=== PATIENT | female | born 1985 | race Caucasian/White ===

== ENCOUNTER → 2017-06-22 15:56 | Outpatient (CLI) | payer BC, SELFPAY ==
--- NOTE | 2017-06-22 16:01 | EKG12_ITS ---
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 Rate : 062 BPM Atrial Rate : 062 BPM P-R Int : 136 ms QRS Dur : 084 ms QT Int : 408 ms P-R-T Axes : 061 081 052 degrees QTc Int : 414 ms Normal sinus rhythm Normal ECG Confirmed by PRAVEENA GOMEZ, BIANCA ([id number]), technical writer and editor ESTER ENGLISH ([id number] on 06/26/2017 1:57:18 PM Referred By: OUT DOCTOR Confirmed By:BIANCA GRISSOM MD
== END ==
PROVIDERS: Family Provider Family Medicine; PCP Family Medicine
DX: G61.0 Guillain-Barre syndrome (principal)
CPT/HCPCS: 93005

== ENCOUNTER → 2017-09-17 17:02 | Outpatient (CLI) | payer BC, SELFPAY ==
[2017-09-17 17:37] LABS: Hematocrit 39.8 % (37-47); Hemoglobin 13.4 g/dl (12.0-15.0); Mean Corp Hgb Conc 33.7 g/gl (32-36); Mean Corpuscular Hgb 29.6 pg (27.0-32.0); Mean Corpuscular Volume 88.1 fL (81-99); Platelet Count 176 K/mm3 (150-450); RBC Distribution Width CV 12.7 % (11.6-14.6); RBC Distribution Width SD 40.9 fl (35.1-43.9); Red Blood Count 4.52 M/mm3 (4.2-5.4)
[2017-09-17 17:38] LABS: Scan Indicated on CBC? Y/N NO
[2017-09-17 17:51] LABS: hCG Titer Quant., Serum < 1 mIU/mL (<9 non-preg)
[2017-09-17 18:09] LABS: Thyroid Stim Hormone (TSH) 2.04 uIU/mL (0.358-3.74)
== END ==
PROVIDERS: Visit Provider Obstetrics & Gynecology
DX: N92.5 Other specified irregular menstruation (principal)
CPT/HCPCS: 36415; 84443; 84702; 85027

== ENCOUNTER → 2017-11-24 09:43 | Outpatient (CLI) | payer BC, SELFPAY ==
--- NOTE | 2017-11-24 09:48 | US_ITS ---
STUDY: ABDOMINAL ULTRASOUND REASON FOR EXAM: Female, 32 years old. Nausea, vomiting, and abdominal pain. TECHNIQUE: Transabdominal ultrasound was performed with real-time and static heart scale imaging. TECHNICAL QUALITY: Adequate. COMPARISON: None. FINDINGS: Liver: The liver measures 12.7 cm. There is normal echogenicity of the liver. The bile ducts are within normal limits. There is hepatic color flow. The direction of portal flow is hepatopetal. There is no demonstrated mass lesion. Portal vein wasn't measured.: Gallbladder: Normal distended gallbladder. The gallbladder wall measures 1.9 mm. There is a positive sonographic Nielsen's sign, according to the chemistry technologist notes. There is no pericholecystic fluid. There is a solitary, mobile, 6 mm gallstone. Common Bile Duct (C.B.D.): The common bile duct measures 6.4 mm. Pancreas: Normal size of the visualized pancreas. The tail of the pancreas is largely obscured. There is normal echogenicity of the pancreas. There is no demonstrated pancreatic mass or cyst. Spleen: Normal size of the spleen. The spleen measures 11.1 cm. Right Kidney: Normal size of the right kidney. The right kidney measures 10.3 x 4.2 x 4.7 cm. Normal renal cortex. The right cortex measures 1.6 cm. There is no demonstrated renal mass or cyst. There is no right hydronephrosis. Left Kidney: Normal size of the left kidney. The left kidney measures 10.6 x 4.5 x 4.9 cm. Normal renal cortex. The left cortex measures 1.7 cm. There is no demonstrated renal mass or cyst. There is no left hydronephrosis. Aorta: Normal. I.V.C.: The IVC is patent. There is no ascites. US/Abdomen Complete IMPRESSION: 6 mm gallstone. The gallbladder otherwise appears normal, however, there is a reportedly positive sonographic Nielsen's sign. Mildly prominent common bile duct measuring 6.4 mm. Electronically Signed: Wiliam Galindo MD at 7:15 EDT , Service support ,
== END ==
LOC: US 09:44
PROVIDERS: Family Provider Family Medicine; PCP Family Medicine; Referring Provider Registered Nurse; Visit Provider Registered Nurse
DX: R10.84 Generalized abdominal pain (principal); R11.2 Nausea with vomiting, unspecified
CPT/HCPCS: 76700

== ENCOUNTER → 2018-06-25 15:29 | Outpatient (CLI) | payer BC, SELFPAY ==
[2018-06-25 17:31] LABS: Erythrocyte Sedimentation Rate < 1 mm/hr (0-20)
[2018-06-25 17:44] LABS: Vitamin B12 505 pg/mL (211-911)
[2018-06-25 18:03] LABS: ALB/GLOB Ratio 1.4 RATIO (0.9-2.4); AST(SGOT) 13 U/L (15-37); Alanine Aminotransfer ALT/SGPT 19 U/L (13-56); Albumin, Serum 3.8 g/dL (3.2-5.0); Alkaline Phosphatase 41 U/L (45-117); Anion Gap 7 (5-15); BUN 7 mg/dL (7-18); BUN/Creat Ratio 8.6 RATIO (10-20); CRP < 2.90 mg/L (0.0-3.0); Calcium,Total 8.5 mg/dL (8.5-10.1); Chloride 107 mmol/L (98-107); Creatinine, Serum 0.81 mg/dL (0.55-1.02); EST Glomerular Filtration Rate 87 mL/min (>60); Est Glom Filt Rate - Afr Amer 105 mL/min (>60); Globulin 2.8 g/dL (2.2-4.2); Glucose 89 mg/dL (74-106); Potassium 3.5 mmol/L (3.5-5.1); Protein, Total 6.6 g/dL (6.4-8.2); Sodium Level 143 mmol/L (136-145); Thyroid Stim Hormone (TSH) 1.81 uIU/mL (0.358-3.74)
[2018-06-27 16:07] LABS: PROEL- A/G Ratio 1.6 (0.7-1.7); PROEL- Albumin 3.9 g/dL (2.9-4.4); PROEL- Alpha-1 Globulin 0.2 g/dL (0.0-0.4); PROEL- Alpha-2 Globulin 0.5 g/dL (0.4-1.0); PROEL- Beta Globulin 0.7 g/dL (0.7-1.3); PROEL- Globulin, Total 2.5 g/dL (2.2-3.9); PROEL- TOTAL PROTEIN 6.4 g/dL (6.0-8.5)
[2018-06-28 10:00] LABS: ANTINUCLEAR ANTIBODIES DIRECT Negative (Negative)
[2018-06-28 16:07] LABS: PROELU- Albumin, Urine 24.6 % (.); PROELU- Alpha-1-Globulin,Ur 2.6 % (.); PROELU- Alpha-2-Globulin,Ur 18.8 % (.); PROELU- Beta Globulin, Ur 36.4 % (.); PROELU- Gamma Globulin, Ur 17.7 % (.); Total Protein, Ur 15.4 mg/dL (Not Estab.)
== END ==
PROVIDERS: Family Provider Family Medicine; PCP Family Medicine; Referring Provider Psychiatry & Neurology Neurology; Visit Provider Psychiatry & Neurology Neurology
DX: G62.9 Polyneuropathy, unspecified (principal)
CPT/HCPCS: 36415; 80053; 82607; 84165; 84166; 84443; 85652; 86038; 86140

== ENCOUNTER 2018-07-02 13:09 | Emergency (ER) | payer BC, SELFPAY ==
[2018-07-02 13:09] VITALS: BP 102/70; PULSE 63; RESP 16; TEMP 36.5; O2SAT 100; BMI 21.4
--- NOTE | 2018-07-02 13:35 | CT_ITS ---
STUDY: CT ABDOMEN AND PELVIS WITHOUT CONTRAST REASON FOR EXAM: Female, 33 years old. Lower quadrant pain, nausea vomiting diarrhea RADIATION DOSAGE (If Supplied By Facility): CTDIvol = ( 6.06 ) mGy, DLP = ( 272.70 ) mGycm TECHNIQUE: Transaxial images were obtained from the dome of the diaphragm to the symphysis pubis without oral contrast, and without intravenous contrast. Sagittal and coronal images were reconstructed. Individualized dose optimization techniques were used for this CT. COMPARISON: None. FINDINGS: The visualized lung bases are unremarkable. The visualized portions of the heart are within normal limits. Normal liver. There are surgical clips in the gallbladder fossa consistent with a prior cholecystectomy. Normal spleen. Normal pancreas. Normal bilateral adrenal glands. Normal right kidney. Normal left kidney. There is minimal amount of radiopaque material within the stomach. Normal small intestine. There is a fluid appearance of the rectum with a relatively decompressed appearance of most of the colon with the exception of the cecum. There is a gassy appearance of the appendix that measures up to normal 5 mm without evidence of surrounding inflammation. Normal abdominal aorta. Normal inferior vena cava. There few nonspecific retroperitoneal lymph nodes. There is a mildly thick-walled appearance of the bladder. Normal visualized uterus. A small amount of free fluid in the pelvis. Normal abdominal wall. Normal osseous structures. CT/Abdomen/Pelvis without Cont IMPRESSION: Nonspecific bowel gas pattern. Findings suggest probable gastroenteritis. There is no visualized evidence of diverticula or diverticulitis. Trace fluid in the pelvis which is likely physiologic Status post cholecystectomy. Electronically Signed: Monalisa Díaz MD at 15:58 EDT Tel , Service support ,
[2018-07-02] MEDS: proCHLORPERazine 10 MG/2 ML Vial IV (14:00)
[2018-07-02] MEDS: DiphenhydrAMINE 50 MG/ML Syringe IV (14:00)
[2018-07-02] MEDS: 0.9% Normal Saline 1,000 ML 1000 ML IV (14:00)
[2018-07-02] MEDS: Ketorolac 30 MG/ML Syringe IV (14:00)
[2018-07-02 14:10] VITALS: RESP 18
[2018-07-02 15:09] LABS: Absolute Lymphocyte Count 2.34 X10^3/ul (0.83-4.51); Absolute Neutrophil Count 2.5 X10^3/uL (2.0-7.7); Basophil# 0.03 X10^3/uL; Basophil% 0.5 % (0-1); Eosinophil# 0.22 X10^3/uL; Eosinophils% 3.8 % (0-5); Hematocrit 39.7 % (37-47); Hemoglobin 13.2 g/dl (12.0-15.0); Lymphocyte # 2.34 X10^3/ul (4.0); Lymphocyte % 40.9 % (19-41); Mean Corp Hgb Conc 33.2 g/gl (32-36); Mean Corpuscular Hgb 29.1 pg (27.0-32.0); Mean Corpuscular Volume 87.4 fL (81-99); Mean Platelet Vol. 10.7 fl (6.2-12.0); Monocyte# 0.64 X10^3/uL; Monocyte% 11.2 % (0-10); Neutrophil # 2.48 X10^3/uL (2.7-7.7); Neutrophil % 43.4 % (47-70); POSITIVE COUNT NO; POSITIVE DIFFERENTIAL NO; POSITIVE MORPHOLOGY NO; Platelet Count 177 K/mm3 (150-450); RBC Distribution Width CV 12.7 % (11.6-14.6); Red Blood Count 4.54 M/mm3 (4.2-5.4); White Blood Count 5.7 K/mm3 (4.4-11.0)
[2018-07-02 15:21] LABS: Internal QC Validated? YES +Cl - CLEAR BKGD; Pregnancy, Serum, hCG Quali. NEGATIVE Negative
[2018-07-02 15:25] LABS: ALB/GLOB Ratio 1.2 RATIO (0.9-2.4); AST(SGOT) 15 U/L (15-37); Alanine Aminotransfer ALT/SGPT 16 U/L (13-56); Albumin, Serum 3.7 g/dL (3.2-5.0); Alkaline Phosphatase 44 U/L (45-117); Anion Gap 4 (5-15); BUN 8 mg/dL (7-18); BUN/Creat Ratio 11.3 RATIO (10-20); Calcium,Total 8.4 mg/dL (8.5-10.1); Chloride 109 mmol/L (98-107); Creatinine, Serum 0.71 mg/dL (0.55-1.02); EST Glomerular Filtration Rate 103 mL/min (>60); Est Glom Filt Rate - Afr Amer 124 mL/min (>60); Glucose 80 mg/dL (74-106); Potassium 3.3 mmol/L (3.5-5.1); Protein, Total 6.7 g/dL (6.4-8.2); Sodium Level 141 mmol/L (136-145)
--- NOTE | 2018-07-02 16:14 | ED.DCSUM_ITS ---
- ER Visit Summary Date of Service: 07/02/18 Chief Complaint: Vomiting and diarrhea History of Present Illness: The patient is a [address] Garza. She reports that she has vomiting and diarrhea that began 2 days ago. States she vomited 3-4 times. No blood or emesis. She had 2 episodes of diarrhea this began today. No blood in her stools or black tarry stools. She reports she has cramping diffuse abdominal pain is 10 to 10 hours and 6 out of 10 currently. Patient denies sick contacts. Has not been camping out of the country. No possible bad food exposure. Does not drink well water. No recent antibiotic use. Patient denies any dysuria or frequency. Her last menstrual. Was 2 weeks ago. No vaginal bleeding or discharge. Physical Examination: Vitals: Stable. Afebrile. General: Well-nourished and well-developed. Head: Normocephalic atraumatic. Neck: Supple, no lymphadenopathy. No JVD. Nontender. Cardiovascular: Regular rate and rhythm. No murmurs. Respiratory: No respiratory distress. Clear to auscultation bilaterally. Abdominal: Soft, mild diffuse upper abdominal tenderness and moderate tenderness palpation in the left lower quadrant, nondistended, normal bowel sounds. No guarding, rebound, or peritoneal signs. Back: Nontender. Extremities: Nontender, no edema. Skin: Normal color, no rash. Neurologic: Alert and oriented ?3. Cranial nerves II through XII are intact. Normal strength and sensation. Psych: Normal affect. Test Results: CBC is remarkable for segmented neutrophils of 43 monocytes of 11. Chem-7 shows a potassium 3.3, chloride 109, calcium 8.4. LFTs show an alk phos of 44. test is negative. Clinical Impression(s) from Imaging Studies Abdomen/Pelvis CT 07/02/18 13:35 IMPRESSION: Nonspecific bowel gas pattern. Findings suggest probable gastroenteritis. There is no visualized evidence of diverticula or diverticulitis. Trace fluid in the pelvis which is likely physiologic Status post cholecystectomy. Electronically Signed: Monalisa Díaz MD at 15:58 EDT Tel , Service support , Emergency Department Course and Treatment: Patient was given Toradol, Compazine, and Benadryl IV. She is resting comfortably. She is had no vomiting or diarrhea while here. Treatment Plan: Patient be discharged with Zofran. Instructed to follow-up her primary care physician 1 to 2 days if not improving. Return to the emergency department for any worsening symptoms. Disposition: To home in improved and stable condition. Impression: 1. Vomiting/diarrhea. This note was generated with [employer] dictation software. It may contain incorrect words, spelling, and punctuation that were not noted in review of the chart prior to signing ED Disposition - Plan for ED Patient: Disposition: Home or Assisted Living Instructions: ED Vomiting Diarrhea Nonspecific Ad Prescriptions: Ondansetron [Zofran Odt] 4 mg PO Q8H PRN PRN #10 tablet PRN Reason: Nausea Referrals: Aditya Garza MD [Primary Care Provider] - 1-2 Days if not improving
[2018-07-02 17:08] VITALS: BP 111/75; PULSE 71; RESP 16; O2SAT 99
== END 2018-07-02 17:09 | disposition home or self-care (01) ==
LOC: ED 13:46
PROVIDERS: Emergency Provider Emergency Medicine; Family Provider Family Medicine; PCP Family Medicine
DX: R19.7 Diarrhea, unspecified (principal); R11.2 Nausea with vomiting, unspecified; R10.9 Unspecified abdominal pain; R50.9 Fever, unspecified; Z90.49 Acquired absence of other specified parts of digestive tract; F17.210 Nicotine dependence, cigarettes, uncomplicated
CPT/HCPCS: 74176; 80053; 84703; 85025; 96361; 96374; 96375; 99283; J7030; A4216

== ENCOUNTER → 2018-07-29 14:34 | Outpatient (CLI) | payer BC, SELFPAY ==
[2018-07-02 13:09] VITALS: BMI 21.4
--- NOTE | 2018-07-29 14:38 | RAD_ITS ---
STUDY: X-RAY - LUMBAR SPINE REASON FOR EXAM: Female, 33 years old. Guillain [place] syndrome TECHNIQUE: 4 view(s) of the lumbar spine were obtained. COMPARISON: CT scan abdomen and pelvis 07/02/2018. FINDINGS: Normal lumbar lordosis. There is no substantial scoliosis. There is a normal alignment of the vertebrae. Normal vertebral bodies and endplates. Normal disc space heights. The soft tissue structures are unremarkable. RAD/L/S Spine Min 4 Views IMPRESSION: Normal x-ray examination of the lumbar spine. Electronically Signed: Wiliam Galindo MD at 7:02 EDT , Service support ,
== END ==
PROVIDERS: Family Provider Family Medicine; PCP Family Medicine
DX: G61.0 Guillain-Barre syndrome (principal)
CPT/HCPCS: 72110

== ENCOUNTER → 2018-10-02 07:57 | Outpatient (CLI) | payer OTHER, BC, SELFPAY ==
--- NOTE | 2018-10-02 11:36 | NEURO_ITS ---
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 Since that time she has experienced nonprogressive pain in her lower extremities. She has no back pain she is healthy otherwise. She has recovered otherwise functionally from the Guillain- Otto?. She does not drink alcohol and she does not have diabetes. She currently sees pain management, Dr. Chowdhury, who ordered this test. On examination she has high archs bilaterally. Bilateral lower extremity nerve conduction studies performed demonstrating slowed conduction velocities diffusely in the bilateral common peroneal motor and tibial motor nerves. The sural sensory responses are also demonstrating mild slowing of conduction velocity and decreased in amplitude bilaterally somewhat asymmetrically. F-wave latencies are dispersed, H reflex responses are low normal. Right lower extremity needle electromyography is performed. Muscles evaluated included the extensor digitorum brevis, abductor hallucis, medial gastrocnemius, anterior tibialis, vastus medialis and vastus lateralis muscles. All muscles demonstrated normal insertional activity with absence of pathologic spontaneous activity. Motor unit potential recruitment pattern and amplitude is normal in all muscles tested. Impression: This is an abnormal electrophysiologic study consistent with chronic neuropathy, moderate to severe with slowing of conduction velocities. This is consistent by history with the patient's history of Guillain-Otto? likely based on examination and high arches with a superimposed chronic likely idiopathic peripheral neuropathy. Dictated but not proofread
== END ==
LOC: PSN 07:58
PROVIDERS: Family Provider Family Medicine; PCP Family Medicine
DX: G61.0 Guillain-Barre syndrome (principal)
CPT/HCPCS: 95910

== ENCOUNTER 2019-02-20 00:21 | Emergency (ER) | payer OTHER, SELFPAY ==
[2019-02-20 00:22] VITALS: BP 102/78; PULSE 109; RESP 20; TEMP 37.3; O2SAT 97; BMI 25.4
--- NOTE | 2019-02-20 00:33 | RAD_ITS ---
STUDY: X-RAY CHEST REASON FOR EXAM: Female, 34 years old. COUGH X 1 DAY TECHNIQUE: PA and lateral COMPARISON: None. FINDINGS: The lungs are clear and expanded. There is no demonstrated pleural abnormality. Normal size heart. Normal mediastinum and shaun. Normal visualized pulmonary arteries. Normal visualized aortic arch and descending thoracic aorta. Normal visualized thoracic spine. Normal visualized ribs, clavicles, and shoulders. There is no demonstrated abnormality of the visualized soft tissue structures of the upper abdomen. RAD/Chest PA and Lateral IMPRESSION: Negative x-ray examination of the chest. Electronically Signed: Bharat Rizvi, at 1:02 EST Tel , Service support ,
--- NOTE | 2019-02-20 00:33 | ED.VIS.GEN ---
History of Present Illness Chief Complaint: Cough Narrative: Patient is a 34-year-old female who has been ill for 1 day. She complains of fever with a maximum temperature at home of 104. She complains of congestion, rhinorrhea, sore throat, cough productive of green sputum, chest congestion, myalgias. Multiple sick contacts with similar symptoms. She has a remote history of Guillian-Otto? syndrome. She otherwise has no medical history. No history of any pulmonary disease. No daily medications. No vomiting. She has had some mild diarrhea. Past Medical History - Allergies and Home Meds Allergies/Adverse Reactions: Allergies No Known Allergies Allergy (Verified 02/20/19 00:22) Primary Care Physician: Aditya Garza MD [Primary Care Provider] - Past Medical History: None Smoking Status: Never smoker Review of Systems All systems negative except as indicated General: Reports: Fever, Malaise Eyes: Denies: Visual changes - bilaterally ENT: Denies: Bilateral ear pain Cardiovascular: Denies: Chest pain Respiratory: Reports: Cough, Sputum. Denies: Dyspnea Gastrointestinal: Reports: Diarrhea. Denies: Nausea, Vomiting Musculoskeletal: Reports: Myalgias, Arthralgias Skin: Denies: Rash Hematologic: Denies: Easy bruising Allergy: Denies: Uticaria Physical Exam Vital Signs/Narrative: Vital Signs Temp Pulse Resp BP Pulse Ox 02/20/19 00:22 99.2 F H 109 H 20 H 102/78 97 Inital Vital Signs reviewed: Yes General: Well nourished, No Acute Distress Head: Normocephalic Eyes: EOMI ENT: Moist mucous membranes Neck: Supple Cardiovascular: - - Heart regular, mild tachycardia Respiratory: No distress, CTA bilaterally. Negative for: Rales, Rhonchi, Wheezing Abdomen: Soft, Nontender Extremities: Nontender Skin: Normal color Neurological: Alert Psychological: Normal affect Diagnostic/Tx/Re-eval Impressions Chest X-Ray 02/20/19 00:33 IMPRESSION: Negative x-ray examination of the chest. Electronically Signed: Bharat Rizvi, at 1:02 EST Tel , Service support , 02/20/19 00:33 CXR [Chest PA and Lateral] [RAD] Stat - Medical Decision Making Chest x-ray shows no acute process. Patient's presentation is most suggestive of a viral syndrome, bronchitis, possibly influenza. Given her lack of comorbidities I do not feel Tamiflu would be indicated. She was advised on supportive care. She understands to return for new or worsening symptoms. She was discharged. ED Disposition - Plan for ED Patient: Disposition: Home or Assisted Living Instructions: VIRAL SYNDROME (Adult) Referrals: Aditya Garza MD [Primary Care Provider] -
[2019-02-20 01:47] VITALS: BP 101/64; PULSE 84; RESP 18; O2SAT 97
== END 2019-02-20 01:48 | disposition home or self-care (01) ==
PROVIDERS: Emergency Provider Emergency Medicine; Family Provider Family Medicine; PCP Family Medicine
DX: B34.9 Viral infection, unspecified (principal); R19.7 Diarrhea, unspecified; J34.89 Other specified disorders of nose and nasal sinuses; J02.9 Acute pharyngitis, unspecified; R05 Cough; M79.10 Myalgia, unspecified site
CPT/HCPCS: 71046; 99282

== ENCOUNTER → 2019-06-16 17:01 | Outpatient (CLI) | payer OTHER, SELFPAY ==
[2019-06-16 21:19] LABS: Chlamydia Trachomatis by PCR Negative (Negative); Neisserai gonorrhoeae by PCR Negative (Negative); Probe Check PASS; Sample Adequacy Control PASS; Specimen Processing Control PASS
[2019-06-18 16:12] LABS: HPV Reflexed? NOT INDICATED
== END ==
PROVIDERS: PCP Family Medicine; Referring Provider Obstetrics & Gynecology; Visit Provider Obstetrics & Gynecology
DX: Z12.4 Encounter for screening for malignant neoplasm of cervix (principal); Z11.3 Encounter for screening for infections with a predominantly sexual mode of transmission
CPT/HCPCS: 87491; 87591; 88175; G0145

== ENCOUNTER → 2019-06-18 18:07 | Outpatient (CLI) | payer OTHER, SELFPAY ==
[2019-06-18 18:18] LABS: Absolute Lymphocyte Count 1.97 X10^3/uL (0.83-4.51); Absolute Neutrophil Count 4.4 X10^3/uL (2.0-7.7); Basophil# 0.03 X10^3/uL; Basophil% 0.4 % (0-1); Eosinophil# 0.22 X10^3/uL; Hematocrit 37.3 % (37-47); Hemoglobin 12.3 g/dL (12.0-15.0); Lymphocyte # 1.97 X10^3/ul (4.0); Lymphocyte % 27.1 % (19-41); Mean Corpuscular Hgb 28.5 pg (27.0-32.0); Mean Corpuscular Volume 86.3 fL (81-99); Monocyte# 0.59 X10^3/uL; Monocyte% 8.1 % (0-10); NRBC Flagged by Analyzer 0 % (0-5); Neutrophil # 4.44 X10^3/uL (2.7-7.7); Neutrophil % 61.1 % (47-70); Platelet Count 179 K/mm3 (150-450); RBC Distribution Width CV 12.2 % (11.6-14.6); RBC Distribution Width SD 38.4 fl (35.1-43.9); Red Blood Count 4.32 M/mm3 (4.2-5.4); White Blood Count 7.3 K/mm3 (4.4-11.0)
[2019-06-18 18:34] LABS: Amphetamine Urine VISTA NEGATIVE (<1000 ng/mL); Barbiturate Urine VISTA NEGATIVE (< 200 ng/mL); Benzodiazepine Urine VISTA NEGATIVE (< 200 ng/mL); Cocaine Urine VISTA NEGATIVE (< 300 ng/mL); Ecstacy Urine VISTA NEGATIVE (< 500 ng/mL); Methadone Urine VISTA NEGATIVE (< 300 ng/mL); PCP Urine VISTA NEGATIVE (< 25 ng/mL); THC Urine VISTA NEGATIVE (< 50 ng/mL); Vista UDS pH Range 6
[2019-06-18 18:35] LABS: Color, Urine Yellow (Yellow); Glucose, Dipstick Normal (Normal); Ketone-Dipstick 50 mg/dl (Negative); Leukocyte Esterase-Dipstick Negative /ul (Negative); Nitrite-Dipstick Negative (Negative); Occult Blood-Urine 10 /ul (Negative); Protein-Dipstick Negative (Negative); Urine Bilirubin Dipstick Negative (Negative); Urine Clarity Sl. Cloudy (Clear); Urine Urobilinogen Normal (Normal); Urine pH 6.5 (5.0 - 8.0)
[2019-06-18 18:43] LABS: Thyroid Stim Hormone (TSH) 1.01 uIU/mL (0.358-3.74)
[2019-06-19 08:09] LABS: Prenatal RPR NONREACTIVE (NONREACTIVE)
[2019-06-19 08:12] LABS: HIV - WCH Non-Reactive (Nonreactive); Hepatitis B Surface Antigen Non-Reactive (Nonreactive); Hepatitis C Antibody Non-Reactive (Nonreactive); Rubella IgG 141.2 IU/mL
== END ==
PROVIDERS: Referring Provider Obstetrics & Gynecology; Visit Provider Obstetrics & Gynecology
DX: Z34.81 Encounter for supervision of other normal pregnancy, first trimester (principal)
CPT/HCPCS: 80307; 81002; 84443; 85025; 86703; 86762; 86803; 87340

== ENCOUNTER → 2019-10-29 10:33 | Outpatient (CLI) | payer OTHER, SELFPAY ==
--- NOTE | 2019-10-29 10:38 | EKG12_ITS ---
Test Reason : MEDICATION Blood Pressure : / mmHG Vent. Rate : 063 BPM Atrial Rate : 063 BPM P-R Int : 116 ms QRS Dur : 078 ms QT Int : 410 ms P-R-T Axes : 139 121 150 degrees QTc Int : 419 ms Suspect arm lead reversal, interpretation assumes no reversal Sinus Rhythm Lateral infarct , age undetermined Abnormal ECG Confirmed by BEE GOMEZ, ALISIA ([id number]), editor department ANGELIC DORSEY ([id number]) on 11/03/2019 1:19:10 PM Referred By: CAROLINA FONTANA Confirmed By:KHANG GAMBOA MD
== END ==
PROVIDERS: PCP Family Medicine
DX: G61.0 Guillain-Barre syndrome (principal); Z79.891 Long term (current) use of opiate analgesic
CPT/HCPCS: 93005

== ENCOUNTER → 2019-11-05 10:34 | Outpatient (CLI) | payer OTHER, SELFPAY ==
[2019-11-05 14:07] LABS: Hematocrit 32.1 % (37-47); Hemoglobin 10.8 g/dL (12.0-15.0); Mean Corp Hgb Conc 33.6 g/dL (32-36); Mean Corpuscular Hgb 30.5 pg (27.0-32.0); Mean Corpuscular Volume 90.7 fL (81-99); Mean Platelet Vol. 10.9 fl (6.2-12.0); Platelet Count 194 K/mm3 (150-450); RBC Distribution Width CV 13.1 % (11.6-14.6); RBC Distribution Width SD 43.5 fl (35.1-43.9); Red Blood Count 3.54 M/mm3 (4.2-5.4); White Blood Count 7.4 K/mm3 (4.4-11.0)
[2019-11-05 14:09] LABS: Glucose Challenge Gest 1H 50g 115 mg/dL (70-140)
== END ==
PROVIDERS: PCP Family Medicine; Visit Provider Obstetrics & Gynecology
DX: Z34.83 Encounter for supervision of other normal pregnancy, third trimester (principal)
CPT/HCPCS: 36415; 82950; 85027; 86850

== ENCOUNTER → 2019-12-30 10:06 | Outpatient (CLI) | payer OTHER, SELFPAY | PROVIDERS: PCP Family Medicine; Visit Provider Student in an Organized Health Care Education/Training Program | DX: Z36.85 Encounter for antenatal screening for Streptococcus B (principal) | CPT/HCPCS: 87081 ==

== ENCOUNTER 2020-01-19 11:00 | Inpatient (IN) | payer OTHER, SELFPAY ==
[2020-01-19] VITALS (20 sets, daily range): BP systolic 91–114; BP diastolic 40–73; PULSE 55–71; RESP 15–18; TEMP 35.7–37.1; O2SAT 97–100; BMI 27.9
[2020-01-19] MEDS: Lactated Ringers 1,000 ML 999 ML IV (11:15)
[2020-01-19 11:27] LABS: Absolute Lymphocyte Count 1.62 X10^3/uL (0.83-4.51); Absolute Neutrophil Count 7.7 X10^3/uL (2.0-7.7); Basophil# 0.03 X10^3/uL; Basophil% 0.3 % (0-1); Eosinophil# 0.31 X10^3/uL; Hematocrit 36.5 % (37-47); Hemoglobin 12.6 g/dL (12.0-15.0); Lymphocyte # 1.62 X10^3/ul (4.0); Lymphocyte % 15.6 % (19-41); Mean Corp Hgb Conc 34.5 g/dL (32-36); Mean Corpuscular Hgb 31.2 pg (27.0-32.0); Mean Corpuscular Volume 90.3 fL (81-99); Mean Platelet Vol. 10.9 fl (6.2-12.0); Monocyte# 0.63 X10^3/uL; Monocyte% 6.1 % (0-10); NRBC Flagged by Analyzer 0 % (0-5); Neutrophil # 7.72 X10^3/uL (2.7-7.7); Neutrophil % 74.5 % (47-70); Platelet Count 195 K/mm3 (150-450); RBC Distribution Width CV 12.7 % (11.6-14.6); RBC Distribution Width SD 41.6 fl (35.1-43.9); Red Blood Count 4.04 M/mm3 (4.2-5.4); White Blood Count 10.4 K/mm3 (4.4-11.0)
[2020-01-19] MEDS: Acetaminophen 500 MG Tablet 1000 MG PO ×2 (11:48→18:16)
[2020-01-19] MEDS: Sodium Citrate/Citric Acid 30 ML UDC PO (11:56)
--- NOTE | 2020-01-19 12:11 | HP.PCM_ITS ---
History and Physical Date of Admission: 01/19/20 HPI: 34 yo at 39/0w, ALFRED 01/26/20 by LMP, admitted in labor. Patient reported vaginal bleeding at home, upon arrival to labor and delivery bleeding had slowed down, however she is daniela and 3 centimeters. As she is 39 weeks will plan for repeat section now and bilateral tubal ligation. Denies LOF. +FM. Denies ALVARADO, vision changes, chest pain, dyspnea, nausea/emesis. 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 Obstetrical History : 33w G2: FT c/s G3: EAB Past Medical History History of drug use Medications PNV, methadone Past Surgical History Cholecystectomy, section, right hernia repair Social History Tobacco use: former Alcohol use: denies Illicit drug use: hx of heroin use, now on methadone Labs Blood type: A neg Rubella: immune Hep B/C: neg HIV: neg RPR: nonreactive GBS: neg Rapid COVID neg 01/18 Allergies NKDA Review of Systems General: alert and oriented HEENT: _denies change of vision Heart/lungs: _denies CP, SOB GI: _denies nausea, vomiting, dysuria, diarrhea MSK: _denies calf pain, tenderness Physical Exam Vital Signs Temp Pulse Resp BP Pulse Ox 01/19/20 11:35 67 110/69 01/19/20 11:34 97.7 F L 01/19/20 11:33 97.7 F L 68 16 110/69 98 01/19/20 10:39 98.8 F 71 112/73 General: a&o x3, NAD HEENT: normocephalic, atraumatic Cardio: no JVD Resp: no increased work in breathing Abdomen: soft, gravid, nontender Extremities: _minimal-moderate edema CE: 3 cm per RN FHT: 145/mod sera/+accel/no decel [place]: irregular Labs Laboratory Results 01/19/20 11:15 WBC 10.4 RBC 4.04 L Hgb 12.6 Hct 36.5 L MCV 90.3 MCH 31.2 MCHC 34.5 RDW Std Deviation 41.6 RDW Coeff of Sera 12.7 Plt Count 195 MPV 10.9 Immature Gran % (Auto) 0.500 Neut % (Auto) 74.5 H Lymph % (Auto) 15.6 L [place] % (Auto) 6.1 Eos % (Auto) 3.0 Baso % (Auto) 0.3 Absolute Neuts (auto) 7.7 Absolute Lymphs (auto) 1.62 Nucleated RBC % 0 Assessment & Plan 34 yo at 39/0w, ALFRED 01/26/20 by LMP, admitted in labor. Patient reported vaginal bleeding at home, upon arrival to labor and delivery bleeding had slowed down, however she is daniela and 3 centimeters. As she is 39 weeks will plan for repeat section now and bilateral tubal ligation. Proceed in urgent, nonemergent fashion. R/B/A discussed with patient. 2 gm ancef and 500 mg azithromycin for unscheduled c/s. 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
[2020-01-19] MEDS: Cefazolin 2 GM in 0.9% Normal Saline 100 ML IV (12:32)
--- NOTE | 2020-01-19 13:04 | FALS_PTH ---
PATIENT: ALEA CHRISTIANSON LOC: [facility] U#:[id number] AGE/SX: 34/F ROOM: WP003 RE01/19/[address]: Dr. Beulah French DO : 1985 BED: 1 DIS: 01/23/2020 SPEC #: [id number] RECD: 01/19/20 15:04 STATUS: KATHLEEN REChiara #: [id number] KRUPA: 01/19/20 13:[address]: Beulah French DEPT: SURGICAL PATHOLOGY RECD BY: Sharon Paige ENTERED: 01/20/20 10:09 SP TYPE: FALL TUBES OTHR DR: Dr. Aditya Garza MD Tissues: Fallopian tube Procedures: Surgery Specimen Level II HEADER OPERATION: Tubal ligation PRE-OP DIAGNOSIS: Sterilization TISSUE SUBMITTED: Fallopian tubes MICROSCOPIC DIAGNOSIS Right and left fallopian tubes, bilateral salpingectomies: Two complete segments of fallopian tubes with no pathologic change. AM:milagros 01/21/20 MICROSCOPIC DESCRIPTION Slides are reviewed. GROSS DESCRIPTION Received in fixative is one container labeled with the patient's name and designated bilateral fallopian tubes, suture in right. The specimen consists of two fallopian tubes with an average length of 6 cm and has a maximal diameter of 0.5 cm. Both fallopian tubes have normal fimbriated ends. No mass lesions are identified. The fallopian tubes are bisected and totally submitted in two cassettes as follows: 1 - right fallopian tube, 2 - left fallopian tube. / AM:milagros 01/20/20 TC:4 CPT: 33178 x2
--- NOTE | 2020-01-19 13:34 | OP.PCM_ITS ---
Delivery Final ALFRED: 01/26/20 Gestational age: 39 Weeks and 0 Days Type of Anesthesia:: Spinal Date of Procedure: 01/19/20 Pre-Operative Diagnosis: Chun intrauterine at 39 weeks, labor Post-Operative Diagnosis: Chun intrauterine at 39 weeks, labor Indications: This is a 34-year-old at 39 weeks and 0 days presenting with bleeding and cervical dilation. Bleeding had slowed down upon admission however her cervix was noted to be dilated to 3 cm. Patient irregularly daniela. No evidence of abruption. As patient is term and in labor decision for urgent section was made. All risk, benefits, alternatives discussed with patient. Risks include but are not limited to: Risk of bleeding to the point of transfusion, infection, injury to surrounding tissue including bowel or bladder, VTE, ICU admission. Patient also desired tubal ligation. Aware of risk of regret and risk of ectopic . Consent signed. Indications for : Repeat Elective , Desires elective sterilization Description of Procedure: Patient taken to the operating room, spinal anesthesia placed. Patient placed in the dorsal lithotomy position and prepped and draped in the usual sterile fashion. Pfannenstiel skin incision made with scalpel and carried down through the underlying subcutaneous tissue. Incision extended with Olivarez scissors bilaterally. Fascia slightly adherent to rectus muscle. Damaris clamps grasped with superior fascial edge which was tented up and underlying rectus muscles were dissected off bluntly and sharply at midline. Damaris clamps moved to the inferior fascial edge which was tented up and underlying rectus muscles were dissected off bluntly and sharply at midline. Hemostats utilized to separate rectus muscle superiorly peritoneum entered using Metzenbaum scissors and blunt dissection. Adhesions noted on the right side of the uterus to the anterior abdominal wall. Dissection was completed carefully with Metzenbaum scissors. This allowed the vesicouterine peritoneum and bladder flap to fall away from the anterior of the uterus. Bladder blade placed. Low transverse uterine incision made with scalpel uterus entered bluntly and extended. Hand placed into the uterus and had elevated to the hysterotomy. Bandage scissors utilized to rectus muscles laterally due to tight band of scar tissue. Vacuum opened and utilized with 1 pull to deliver head, release. No nuchal cord. Body then delivered, cord clamped and cut. Baby handed to nursing. Spontaneous delivery of placenta. Uterus exteriorized and cleared of all clots with lap. Uterus closed with a running locking stitch followed by second vertical imbricating suture. At that time tubal ligation was completed. Identification of the right fallopian tube was made grasped with a Sharad clamp. Window made in the mesosalpinx using Bovie and [place] partial salpingectomy was completed, hemostatic. Left fallopian tube was then identified grasped with [place] clamp, with window made with Bovie. [place] partial salpingectomy completed on the left side. Hemostatic. Uterus replaced into the abdomen incision, tubal sites were inspected again and noted to be hemostatic. Bladder blade removed and peritoneum was closed with running stitch. Fascia closed with running stitch. Skin closed with running subcuticular stitch. At the end the procedure all needle, lap, sponge counts were correct x3. UOP 100cc clear urine. Amniotic Membrane Rupture Type: Artificial Amniotic Fluid Description: Clear Fluids Replaced: 700cc Esitmated Blood Loss (ml): 700cc (1 minute): 8 (5 minute): 9 Delayed cord clamping: Yes Antibiotic Given: Ancef 2 grams IV x1, Zithromax 500 mg/5 mL X1
[2020-01-19] MEDS: Oxytocin 30 units/NS 500 ml 30 UNITS/500 ML IV.SOLN 167 UNITS IV (14:12)
[2020-01-19 14:23] LABS: Pathology Specimen OB SEE PATHOLOGY REPORT
[2020-01-19] MEDS: Lactated Ringers 1,000 ML 100 ML IV (17:18)
--- NOTE | 2020-01-19 18:13 | CPS ---
I.S. in room, RN to give to patient
[2020-01-19] MEDS: Ketorolac 30 MG/ML Syringe IV (19:50)
[2020-01-19] MEDS: 0.9% Saline Lock 10 ML Syringe IV (19:51)
[2020-01-19] MEDS: Amitriptyline 25 MG Tablet PO (23:00)
[2020-01-20] VITALS (9 sets, daily range): BP systolic 92–111; BP diastolic 49–80; PULSE 65–78; RESP 14–16; TEMP 36.3–36.9; O2SAT 97–100
[2020-01-20] MEDS: Acetaminophen 500 MG Tablet 1000 MG PO ×4 (00:10→18:17)
[2020-01-20] MEDS: 0.9% Saline Lock 10 ML Syringe IV ×3 (01:47→13:41)
[2020-01-20] MEDS: Ketorolac 30 MG/ML Syringe IV ×3 (01:48→13:40)
--- NOTE | 2020-01-20 02:14 | PCM.PN.OB ---
Subjective: POD#1 Pain controlled. Lochia minimal. . - Physical Exam Vitals/I&O's: Vital Signs Temp Pulse Resp BP Pulse Ox 97.8 F 67 16 104/54 L 98 01/20/20 00:52 01/20/20 01:52 01/20/20 01:52 01/20/20 00:52 01/20/20 01:52 Oxygen Delivery Method Room Air Weight: 69.3 kg Body Mass Index (BMI) 27.9 Intake and Output for Last 24 Hours 01/18/20 01/19/20 01/20/20 23:59 23:59 23:59 Intake Total 3156.5 / 3156.5 Output Total 400 / 400 630 / 630 Balance 2756.5 / 2756.5 -630 / -630 General: Alert, Oriented x3, No apparent distress HEENT: Atraumatic, Normocephalic Lungs: Clear to auscultation, Normal air movement Cardiovascular: Regular rate Abdomen: Soft - mildly tender, uterus 2 cm below umbilicus. dressing c/d Extremities: Edema - trace Neurological: Cranial nerves II-XII grossly intact, Neuro grossly intact Microbiology Past 72 Hours 01/19/20 11:32 Mucosa - Nose SARS-CoV-2 Antigen (Rapid) - Final Laboratory Results 01/19/20 11:15: WBC 10.4, RBC 4.04 L, Hgb 12.6, Hct 36.5 L, MCV 90.3, MCH 31.2, MCHC 34.5, RDW Std Deviation 41.6, RDW Coeff of Sera 12.7, Plt Count 195, MPV 10.9, Immature Gran % (Auto) 0.500, Neut % (Auto) 74.5 H, Lymph % (Auto) 15.6 L, [place] % (Auto) 6.1, Eos % (Auto) 3.0, Baso % (Auto) 0.3, Absolute Neuts (auto) 7.7, Absolute Lymphs (auto) 1.62, Nucleated RBC % 0 01/19/20 11:15: Blood Type A NEGATIVE, Antibody Screen NEGATIVE 01/19/20 14:50: Screen NEGATIVE, Baby's Blood Type A POSITIVE, Baby's ANTOLIN NEGATIVE Current Medications Acetaminophen (Acetaminophen 500 Mg Tablet) 1,000 mg PO Q6 [facility] Last Admin: 01/20/20 00:10 Dose: 1,000 mg Documented by: Amitriptyline HCl (Amitriptyline 25 Mg Tablet) 25 mg PO QHS [facility] Last Admin: 01/19/20 23:00 Dose: 25 mg Documented by: Bisacodyl (Bisacodyl 10 Mg Suppository) 10 mg RECTAL UD PRN PRN Reason: If no BM Diphenhydramine HCl (Diphenhydramine 25 Mg Capsule) 25 mg PO Q6H PRN PRN PRN Reason: ITCHING Stop: 01/20/20 14:03 Enoxaparin Sodium (Enoxaparin 40 Mg/0.4 Ml Syringe) 40 mg SC DAILY [facility] Hydrocortisone (Hydrocortisone 2.5% Crm) 1 applic TOPICAL TID PRN PRN; Protocol PRN Reason: Discomfort Lactated Ringer's () 1,000 mls @ 100 mls/hr IV .Q10H [facility] Last Infusion: 01/19/20 21:45 Dose: Infused Documented by: Ibuprofen (Ibuprofen 600 Mg Tablet) 600 mg PO Q6H [facility] Ketorolac Tromethamine (Ketorolac 30 Mg/Ml Syringe) 30 mg IV Q6H [facility] Stop: 01/20/20 14:01 Last Admin: 01/20/20 01:48 Dose: 30 mg Documented by: Methadone HCl (Methadone 5 Mg Tablet) 5 mg PO BID [facility] Last Admin: 01/19/20 22:59 Dose: 5 mg Documented by: Methylergonovine Maleate (Methylergonovine 0.2 Mg/Ml Ampul) 0.2 mg IM X1 PRN PRN Reason: Uterine Atony Nalbuphine HCl (Nalbuphine 10 Mg/Ml Ampul) 5 mg IV Q3H PRN PRN PRN Reason: ITCHING Stop: 01/20/20 14:03 Naloxone HCl (Naloxone 0.4 Mg/Ml Syringe) 0.02 mg IV Q1M PRN PRN Reason: RR <10 and pt unresponsive Ondansetron HCl (Ondansetron 4 Mg/2 Ml Vial) 4 mg IV Q4H PRN PRN PRN Reason: Nausea Oxycodone HCl (Oxycodone 5 Mg Tablet) 5 - 10 mg PO Q4H PRN PRN PRN Reason: Pain Score 4-10 Prochlorperazine Edisylate (Prochlorperazine 10 Mg/2 Ml Vial) 10 mg IV Q6H PRN PRN PRN Reason: NAUSEA Senna/Docusate Sodium (Senna/Docusate Sodium 1 Tablet) 0 tablet PO DAILY [facility] Simethicone (Simethicone 80 Mg Tablet) 80 mg PO PCHS PRN PRN Reason: Indigestion/stomach pain Sodium Chloride (0.9% Saline Lock 10 Ml Syringe) 5 - 15 ml IV UD PRN PRN Reason: SALINE FLUSH Last Admin: 01/20/20 01:47 Dose: 10 ml Documented by: Zolpidem Tartrate (Zolpidem Tartrate 5 Mg Tablet) 5 mg PO QHS PRN PRN PRN Reason: Insomnia Medical Necessity - Tobacco Use Smoking Status: Former smoker Assessment/Plan 34 yo POD#1 s/p repeat section and bilateral tubal ligation. . Methadone and amitryptiline continued. Baby doing well, in room. Fussy overnight per pt. Acute blood loss anemia secondary to surgery. Thrombocytopenia - consumptive secondary to surgery. Home POD2-3.
[2020-01-20 05:16] LABS: Hematocrit 31.7 % (37-47); Hemoglobin 10.6 g/dL (12.0-15.0); Mean Corp Hgb Conc 33.4 g/dL (32-36); Mean Corpuscular Hgb 30.7 pg (27.0-32.0); Mean Corpuscular Volume 91.9 fL (81-99); Mean Platelet Vol. 10.7 fl (6.2-12.0); Platelet Count 143 K/mm3 (150-450); RBC Distribution Width CV 12.8 % (11.6-14.6); RBC Distribution Width SD 42.3 fl (35.1-43.9); Red Blood Count 3.45 M/mm3 (4.2-5.4); White Blood Count 9.9 K/mm3 (4.4-11.0)
[2020-01-20] MEDS: Enoxaparin 40 MG/0.4 ML Syringe SC (10:17)
[2020-01-20] MEDS: Senna/Docusate Sodium 1 Tablet PO (10:17)
[2020-01-20] MEDS: Ibuprofen 600 MG Tablet PO (20:00)
[2020-01-20] MEDS: Amitriptyline 25 MG Tablet PO (22:59)
[2020-01-21] MEDS: Acetaminophen 500 MG Tablet 1000 MG PO ×4 (00:22→18:24)
[2020-01-21 02:09] VITALS: BP 94/47; PULSE 63; RESP 16; TEMP 36.5
--- NOTE | 2020-01-21 02:11 | NURSING ---
pt denies feeling dizzy or lightheaded at this time. will continue to monitor. pt states her BP normally runs low.
[2020-01-21] MEDS: Ibuprofen 600 MG Tablet PO ×4 (02:13→20:15)
--- NOTE | 2020-01-21 08:48 | PN.OBGYN_ITS ---
Subjective: Patient without complaints. Tolerating diet well. Positive flatus. Minimal vaginal bleeding. Pain well controlled. Per patient baby will be staying until tomorrow. Objective: Wound is clean, dry, intact with Mepilex dressing in place. Good urine output. - Physical Exam Vitals/I&O's: Vital Signs Temp Pulse Resp BP Pulse Ox 97.7 F L 63 16 94/47 L 98 01/21/20 02:09 01/21/20 02:09 01/21/20 02:09 01/21/20 02:09 01/20/20 12:21 Oxygen Delivery Method Room Air Weight: 152 lb 12.485 oz Body Mass Index (BMI) 27.9 Intake and Output for Last 24 Hours 01/19/20 01/20/20 01/21/20 23:59 23:59 23:59 Intake Total 3156.5 / 3156.5 500 / 500 Output Total 400 / 400 630 / 630 Balance 2756.5 / 2756.5 -130 / -130 Microbiology Past 72 Hours 01/19/20 11:32 Mucosa - Nose SARS-CoV-2 Antigen (Rapid) - Final Current Medications Acetaminophen (Acetaminophen 500 Mg Tablet) 1,000 mg PO Q6 [facility] Last Admin: 01/21/20 06:24 Dose: 1,000 mg Documented by: Amitriptyline HCl (Amitriptyline 25 Mg Tablet) 25 mg PO QHS [facility] Last Admin: 01/20/20 22:59 Dose: 25 mg Documented by: Bisacodyl (Bisacodyl 10 Mg Suppository) 10 mg RECTAL UD PRN PRN Reason: If no BM Enoxaparin Sodium (Enoxaparin 40 Mg/0.4 Ml Syringe) 40 mg SC DAILY [facility] Last Admin: 01/20/20 10:17 Dose: 40 mg Documented by: Hydrocortisone (Hydrocortisone 2.5% Crm) 1 applic TOPICAL TID PRN PRN; Protocol PRN Reason: Discomfort Ibuprofen (Ibuprofen 600 Mg Tablet) 600 mg PO Q6H [facility] Last Admin: 01/21/20 02:13 Dose: 600 mg Documented by: Methadone HCl (Methadone 5 Mg Tablet) 5 mg PO BID [facility] Last Admin: 01/20/20 22:59 Dose: 5 mg Documented by: Methylergonovine Maleate (Methylergonovine 0.2 Mg/Ml Ampul) 0.2 mg IM X1 PRN PRN Reason: Uterine Atony Naloxone HCl (Naloxone 0.4 Mg/Ml Syringe) 0.02 mg IV Q1M PRN PRN Reason: RR <10 and pt unresponsive Ondansetron HCl (Ondansetron 4 Mg/2 Ml Vial) 4 mg IV Q4H PRN PRN PRN Reason: Nausea Oxycodone HCl (Oxycodone 5 Mg Tablet) 5 - 10 mg PO Q4H PRN PRN PRN Reason: Pain Score 4-10 Prochlorperazine Edisylate (Prochlorperazine 10 Mg/2 Ml Vial) 10 mg IV Q6H PRN PRN PRN Reason: NAUSEA Senna/Docusate Sodium (Senna/Docusate Sodium 1 Tablet) 0 tablet PO DAILY [facility] Last Admin: 01/20/20 10:17 Dose: 1 tablet Documented by: Simethicone (Simethicone 80 Mg Tablet) 80 mg PO PCHS PRN PRN Reason: Indigestion/stomach pain Sodium Chloride (0.9% Saline Lock 10 Ml Syringe) 5 - 15 ml IV UD PRN PRN Reason: SALINE FLUSH Last Admin: 01/20/20 13:41 Dose: 10 ml Documented by: Zolpidem Tartrate (Zolpidem Tartrate 5 Mg Tablet) 5 mg PO QHS PRN PRN PRN Reason: Insomnia Medical Necessity - Tobacco Use Smoking Status: Former smoker Assessment/Plan Doing well postoperative day #2 status post repeat . Continuing present care.
[2020-01-21 09:06] VITALS: BP 103/50; PULSE 70; RESP 16; TEMP 36.6; O2SAT 97
[2020-01-21] MEDS: Enoxaparin 40 MG/0.4 ML Syringe SC (10:11)
[2020-01-21] MEDS: Senna/Docusate Sodium 1 Tablet PO (10:11)
[2020-01-21 13:04] VITALS: BP 122/74; PULSE 80; RESP 16; TEMP 36.8
[2020-01-21 19:44] VITALS: BP 115/74; PULSE 69; RESP 16; TEMP 36.5
[2020-01-21] MEDS: Amitriptyline 25 MG Tablet PO (23:29)
[2020-01-22] MEDS: Acetaminophen 500 MG Tablet 1000 MG PO ×4 (00:23→18:36)
[2020-01-22 01:52] VITALS: BP 100/65; PULSE 61; RESP 16; TEMP 36.4
[2020-01-22] MEDS: Ibuprofen 600 MG Tablet PO ×4 (01:54→19:57)
[2020-01-22 08:17] VITALS: BP 121/67; PULSE 72; RESP 18; TEMP 36.9
--- NOTE | 2020-01-22 09:20 | PCM.PN.OB ---
Subjective: Patient without complaints. Tolerating diet well. Positive flatus. Baby needs to stay for at least another day and patient declines discharged today because she wants to stay with the baby. - Physical Exam Vitals/I&O's: Vital Signs Temp Pulse Resp BP Pulse Ox 98.4 F 72 18 121/67 H 97 01/22/20 08:17 01/22/20 08:17 01/22/20 08:17 01/22/20 08:17 01/21/20 09:06 Oxygen Delivery Method Room Air Weight: 152 lb 12.485 oz Body Mass Index (BMI) 27.9 Intake and Output for Last 24 Hours 01/20/20 01/21/20 01/22/20 23:59 23:59 23:59 Intake Total 500 / 500 Output Total 630 / 630 Balance -130 / -130 Microbiology Past 72 Hours 01/19/20 11:32 Mucosa - Nose SARS-CoV-2 Antigen (Rapid) - Final Current Medications Acetaminophen (Acetaminophen 500 Mg Tablet) 1,000 mg PO Q6 [facility] Last Admin: 01/22/20 06:26 Dose: 1,000 mg Documented by: Amitriptyline HCl (Amitriptyline 25 Mg Tablet) 25 mg PO QHS [facility] Last Admin: 01/21/20 23:29 Dose: 25 mg Documented by: Bisacodyl (Bisacodyl 10 Mg Suppository) 10 mg RECTAL UD PRN PRN Reason: If no BM Enoxaparin Sodium (Enoxaparin 40 Mg/0.4 Ml Syringe) 40 mg SC DAILY [facility] Last Admin: 01/21/20 10:11 Dose: 40 mg Documented by: Hydrocortisone (Hydrocortisone 2.5% Crm) 1 applic TOPICAL TID PRN PRN; Protocol PRN Reason: Discomfort Ibuprofen (Ibuprofen 600 Mg Tablet) 600 mg PO Q6H [facility] Last Admin: 01/22/20 08:15 Dose: 600 mg Documented by: Methadone HCl (Methadone 5 Mg Tablet) 5 mg PO BID [facility] Last Admin: 01/21/20 23:29 Dose: 5 mg Documented by: Methylergonovine Maleate (Methylergonovine 0.2 Mg/Ml Ampul) 0.2 mg IM X1 PRN PRN Reason: Uterine Atony Naloxone HCl (Naloxone 0.4 Mg/Ml Syringe) 0.02 mg IV Q1M PRN PRN Reason: RR <10 and pt unresponsive Ondansetron HCl (Ondansetron 4 Mg/2 Ml Vial) 4 mg IV Q4H PRN PRN PRN Reason: Nausea Oxycodone HCl (Oxycodone 5 Mg Tablet) 5 - 10 mg PO Q4H PRN PRN PRN Reason: Pain Score 4-10 Prochlorperazine Edisylate (Prochlorperazine 10 Mg/2 Ml Vial) 10 mg IV Q6H PRN PRN PRN Reason: NAUSEA Senna/Docusate Sodium (Senna/Docusate Sodium 1 Tablet) 0 tablet PO DAILY [facility] Last Admin: 01/21/20 10:11 Dose: 1 tablet Documented by: Simethicone (Simethicone 80 Mg Tablet) 80 mg PO PCHS PRN PRN Reason: Indigestion/stomach pain Sodium Chloride (0.9% Saline Lock 10 Ml Syringe) 5 - 15 ml IV UD PRN PRN Reason: SALINE FLUSH Last Admin: 01/20/20 13:41 Dose: 10 ml Documented by: Zolpidem Tartrate (Zolpidem Tartrate 5 Mg Tablet) 5 mg PO QHS PRN PRN PRN Reason: Insomnia Medical Necessity - Tobacco Use Smoking Status: Former smoker Assessment/Plan Doing well postoperative day #3 status post repeat . Continuing present care.
[2020-01-22] MEDS: Enoxaparin 40 MG/0.4 ML Syringe SC (10:33)
[2020-01-22] MEDS: Senna/Docusate Sodium 1 Tablet PO (10:33)
[2020-01-22 14:07] VITALS: BP 124/66; PULSE 80; RESP 18; TEMP 36.6
[2020-01-22 19:54] VITALS: BP 120/78; PULSE 72; RESP 14; TEMP 36.6
[2020-01-22] MEDS: Amitriptyline 25 MG Tablet PO (22:44)
[2020-01-23] MEDS: Acetaminophen 500 MG Tablet 1000 MG PO ×3 (00:37→13:17)
--- NOTE | 2020-01-23 00:41 | NURSING ---
Addendum entered by Anne Haines 01/23/20 00:48: This RN immediately went to nursery computer and reverified patient info and manually entered med into MAR. Med given. Original Note: Manual administration of scheduled Tylenol given because RN could not get computer in room, or WOWs, to open MediXapo. Dose and time verified with Tonny GUARDADO. Wrist band checked and name/ obtained and verified.
[2020-01-23] MEDS: Ibuprofen 600 MG Tablet PO ×3 (01:49→15:07)
[2020-01-23 01:51] VITALS: BP 126/51; PULSE 72; RESP 16; TEMP 36.8
[2020-01-23 08:29] VITALS: BP 110/43; PULSE 56; RESP 14; TEMP 36.6
--- NOTE | 2020-01-23 08:33 | PN.OBGYN_ITS ---
Subjective: No overnight complaints. Pain well controlled. - Physical Exam Vitals/I&O's: Vital Signs Temp Pulse Resp BP Pulse Ox 97.8 F 56 L 14 110/43 L 97 01/23/20 08:29 01/23/20 08:29 01/23/20 08:29 01/23/20 08:29 01/21/20 09:06 Oxygen Delivery Method Room Air Weight: 152 lb 12.485 oz Body Mass Index (BMI) 27.9 General: Alert, Oriented x3, Cooperative, No apparent distress, Well developed, Well nourished HEENT: Atraumatic, Normocephalic Oral: Moist Mucosa Neck: Supple, No JVD Abdomen: Soft, Non Tender, - - Is firm and below umbilicus. Bandage intact clean dry Extremities: No clubbing, No cyanosis, No edema Neurological: Neuro grossly intact Psych/Mental Status: Normal Affect, Appropriate, Alert and oriented to time, place, person, mood and affect Current Medications Acetaminophen (Acetaminophen 500 Mg Tablet) 1,000 mg PO Q6 [facility] Last Admin: 01/23/20 06:27 Dose: 1,000 mg Documented by: Amitriptyline HCl (Amitriptyline 25 Mg Tablet) 25 mg PO QHS [facility] Last Admin: 01/22/20 22:44 Dose: 25 mg Documented by: Bisacodyl (Bisacodyl 10 Mg Suppository) 10 mg RECTAL UD PRN PRN Reason: If no BM Enoxaparin Sodium (Enoxaparin 40 Mg/0.4 Ml Syringe) 40 mg SC DAILY [facility] Last Admin: 01/22/20 10:33 Dose: 40 mg Documented by: Hydrocortisone (Hydrocortisone 2.5% Crm) 1 applic TOPICAL TID PRN PRN; Protocol PRN Reason: Discomfort Ibuprofen (Ibuprofen 600 Mg Tablet) 600 mg PO Q6H [facility] Last Admin: 01/23/20 01:49 Dose: 600 mg Documented by: Methadone HCl (Methadone 5 Mg Tablet) 5 mg PO BID [facility] Last Admin: 01/22/20 22:44 Dose: 5 mg Documented by: Methylergonovine Maleate (Methylergonovine 0.2 Mg/Ml Ampul) 0.2 mg IM X1 PRN PRN Reason: Uterine Atony Naloxone HCl (Naloxone 0.4 Mg/Ml Syringe) 0.02 mg IV Q1M PRN PRN Reason: RR <10 and pt unresponsive Ondansetron HCl (Ondansetron 4 Mg/2 Ml Vial) 4 mg IV Q4H PRN PRN PRN Reason: Nausea Oxycodone HCl (Oxycodone 5 Mg Tablet) 5 - 10 mg PO Q4H PRN PRN PRN Reason: Pain Score 4-10 Prochlorperazine Edisylate (Prochlorperazine 10 Mg/2 Ml Vial) 10 mg IV Q6H PRN PRN PRN Reason: NAUSEA Senna/Docusate Sodium (Senna/Docusate Sodium 1 Tablet) 0 tablet PO DAILY [facility] Last Admin: 01/22/20 10:33 Dose: 1 tablet Documented by: Simethicone (Simethicone 80 Mg Tablet) 80 mg PO PCHS PRN PRN Reason: Indigestion/stomach pain Sodium Chloride (0.9% Saline Lock 10 Ml Syringe) 5 - 15 ml IV UD PRN PRN Reason: SALINE FLUSH Last Admin: 01/20/20 13:41 Dose: 10 ml Documented by: Zolpidem Tartrate (Zolpidem Tartrate 5 Mg Tablet) 5 mg PO QHS PRN PRN PRN Reason: Insomnia Medical Necessity - Tobacco Use Smoking Status: Former smoker Assessment/Plan Postoperative day 4 pain well controlled. Breast-feeding. Okay to discharge home today
--- NOTE | 2020-01-23 08:34 | DS.PCM_ITS ---
Discharge Date and Diagnosis Date of Admission: 01/19/20 Date of Discharge: 01/23/20 Hospital Course and Treatment Operations: - - Repeat section Procedures: None Summary of Care Provided: The patient is a 34 year old F [] - Physical Exam Vitals/I&O's: Vital Signs Temp Pulse Resp BP Pulse Ox 97.8 F 56 L 14 110/43 L 97 01/23/20 08:29 01/23/20 08:29 01/23/20 08:29 01/23/20 08:29 01/21/20 09:06 Oxygen Delivery Method Room Air Weight: 152 lb 12.485 oz Body Mass Index (BMI) 27.9 General: Alert, Oriented x3, Cooperative, No apparent distress HEENT: Atraumatic, PERRLA, Normocephalic Oral: Moist Mucosa Neck: Supple, No JVD Lungs: Clear to auscultation, Normal air movement, No rhonchi, No wheeze Cardiovascular: Regular rate, Regular Rhythm, Normal S1, Normal S2 Abdomen: Bowel Sounds Present, Soft, Non Tender, - - Fundus firm and below umbilicus. Incision bandage intact clean dry Extremities: No clubbing, No cyanosis, No edema Neurological: Neuro grossly intact Psych/Mental Status: Normal Affect, Appropriate, Alert and oriented to time, place, person, mood and affect Current Medications Acetaminophen (Acetaminophen 500 Mg Tablet) 1,000 mg PO Q6 [facility] Last Admin: 01/23/20 06:27 Dose: 1,000 mg Documented by: Amitriptyline HCl (Amitriptyline 25 Mg Tablet) 25 mg PO QHS [facility] Last Admin: 01/22/20 22:44 Dose: 25 mg Documented by: Bisacodyl (Bisacodyl 10 Mg Suppository) 10 mg RECTAL UD PRN PRN Reason: If no BM Enoxaparin Sodium (Enoxaparin 40 Mg/0.4 Ml Syringe) 40 mg SC DAILY [facility] Last Admin: 01/22/20 10:33 Dose: 40 mg Documented by: Hydrocortisone (Hydrocortisone 2.5% Crm) 1 applic TOPICAL TID PRN PRN; Protocol PRN Reason: Discomfort Ibuprofen (Ibuprofen 600 Mg Tablet) 600 mg PO Q6H [facility] Last Admin: 01/23/20 01:49 Dose: 600 mg Documented by: Methadone HCl (Methadone 5 Mg Tablet) 5 mg PO BID [facility] Last Admin: 01/22/20 22:44 Dose: 5 mg Documented by: Methylergonovine Maleate (Methylergonovine 0.2 Mg/Ml Ampul) 0.2 mg IM X1 PRN PRN Reason: Uterine Atony Naloxone HCl (Naloxone 0.4 Mg/Ml Syringe) 0.02 mg IV Q1M PRN PRN Reason: RR <10 and pt unresponsive Ondansetron HCl (Ondansetron 4 Mg/2 Ml Vial) 4 mg IV Q4H PRN PRN PRN Reason: Nausea Oxycodone HCl (Oxycodone 5 Mg Tablet) 5 - 10 mg PO Q4H PRN PRN PRN Reason: Pain Score 4-10 Prochlorperazine Edisylate (Prochlorperazine 10 Mg/2 Ml Vial) 10 mg IV Q6H PRN PRN PRN Reason: NAUSEA Senna/Docusate Sodium (Senna/Docusate Sodium 1 Tablet) 0 tablet PO DAILY [facility] Last Admin: 01/22/20 10:33 Dose: 1 tablet Documented by: Simethicone (Simethicone 80 Mg Tablet) 80 mg PO PCHS PRN PRN Reason: Indigestion/stomach pain Sodium Chloride (0.9% Saline Lock 10 Ml Syringe) 5 - 15 ml IV UD PRN PRN Reason: SALINE FLUSH Last Admin: 01/20/20 13:41 Dose: 10 ml Documented by: Zolpidem Tartrate (Zolpidem Tartrate 5 Mg Tablet) 5 mg PO QHS PRN PRN PRN Reason: Insomnia Discharge Diet: No Restrictions Discharge Activity: Return to Normal Activity, May Drive, May Shower, - - No tub baths for 2 weeks May resume sexual activity in: 2 weeks Lifting Restrict to (lbs):: 25 Call your doctor if your incision/area has: Foul Smelling Discharge Call your doctor if you observe: Fever of 101 or Higher, Shortness of breath, Chest pain Home Medications: Medications to take at Discharge Methadone HCl 5 mg PO BID 07/02/18 Amitriptyline HCl 25 mg PO QHS 02/20/19 Primary Care Physician: Aditya Garza MD [Primary Care Provider] - Please Follow Up With: Godfrey Eid MD When: 2 weeks Medical Necessity - Tobacco Use Smoking Status: Former smoker Meaningful Use Info Meaningful Use Diagnoses (Choose all that apply): None applicable
[2020-01-23] MEDS: Enoxaparin 40 MG/0.4 ML Syringe SC (10:14)
[2020-01-23] MEDS: Senna/Docusate Sodium 1 Tablet PO (10:14)
--- NOTE | 2020-01-23 10:47 | CASEMGMT ---
Social Work Labor and Delivery Unit Social work assessment completed and documented in the 's chart. Refer to 's chart for further details of assessment. Consult placed to due to baby having MINISTERIO scoring per protocol of HANNA'S prescribed methadone use during . HANNA reports she has been on methadone for 10 years now related to medical diagnosis. There have been no reports of any type of misuse of this drug for HANNA. Those HANNA'S drug screen during care, and the infant's drug screen at time of delivery were both negative. HANNA has been provided with information on mood and anxiety disorders. And [facility] reported to have all needed supplies to keep care for the baby. -MONROE Zeng, WASHER ENGINEER *Information in this note generated with the [employer] system.*
[2020-01-23 15:08] VITALS: BP 121/78; PULSE 77; RESP 16; TEMP 36.7
--- NOTE | 2020-01-23 15:36 | DCINST_ITS ---
Discharge Diet: No Restrictions Discharge Activity: Return to Normal Activity, May Drive, May not drive while taking narcotic pain medications., May Shower, - - No tub baths for 2 weeks May resume sexual activity in: 4-6 weeks, 2 weeks Call your doctor if your incision/area has: Foul Smelling Discharge Call your doctor if you observe: Fever of 101 or Higher, Shortness of breath, Chest pain Additional Instructions: If you experience any of the following, contact your healthcare provider. * Bleeding that soaks a pad every hour for 2 hours * Fever 100.4 or higher * Unrelieved incision or abdominal pain * Swelling, redness, discharge or bleeding from your incision or episiotomy site * Your incision begins to separate * Problems urinating (including inability to urinate or burning while urinating). * Visual changes * Severe headache * Flu-like symptoms * Pain or redness in one of both of your breasts * Pain, warmth, tenderness or swelling in your legs, especially the calf area * Frequent nausea and vomiting * Symptoms of depression or anxiety If you experience any of the following, call 911 or go to the nearest Emergency Room. * Chest pain * Problems breathing * Seizure activity * Partial or complete paralysis of a body part, slurred speech, weakness or drooping of the face, or a sudden inability to walk or hold your balance Allergies/Adverse Reactions: Allergies No Known Allergies Allergy (Verified 01/19/20 11:13) Medications to take at Discharge Methadone HCl 5 mg PO BID 07/02/18 Amitriptyline HCl 25 mg PO QHS 02/20/19 Follow-Up: Call to make an appointment with your doctor for an incision check in 1-2 weeks. You will also need a 6 week post- follow up appointment. Test results from this visit will be discussed in further detail at your follow- up appointment, if applicable. Please Follow Up With: Godfrey Eid MD When: 2 weeks Primary Care Physician: Aditya Garza MD [Primary Care Provider] - Proposed Discharge Date: 01/23/20
--- NOTE | 2020-01-23 15:36 | DCINST_ITS ---
Discharge Diet: No Restrictions Discharge Activity: Return to Normal Activity, May Drive, May Shower, - - No tub baths for 2 weeks May resume sexual activity in: 2 weeks Call your doctor if your incision/area has: Foul Smelling Discharge Call your doctor if you observe: Fever of 101 or Higher, Shortness of breath, Chest pain Additional Instructions: If you experience any of the following, contact your healthcare provider. * Bleeding that soaks a pad every hour for 2 hours * Fever 100.4 or higher * Unrelieved incision or abdominal pain * Swelling, redness, discharge or bleeding from your incision or episiotomy site * Your incision begins to separate * Problems urinating (including inability to urinate or burning while urinating). * Visual changes * Severe headache * Flu-like symptoms * Pain or redness in one of both of your breasts * Pain, warmth, tenderness or swelling in your legs, especially the calf area * Frequent nausea and vomiting * Symptoms of depression or anxiety If you experience any of the following, call 911 or go to the nearest Emergency Room. * Chest pain * Problems breathing * Seizure activity * Partial or complete paralysis of a body part, slurred speech, weakness or drooping of the face, or a sudden inability to walk or hold your balance Allergies/Adverse Reactions: Allergies No Known Allergies Allergy (Verified 01/19/20 11:13) Medications to take at Discharge Methadone HCl 5 mg PO BID 07/02/18 Amitriptyline HCl 25 mg PO QHS 02/20/19 Primary Care Physician: Aditya Garza MD [Primary Care Provider] - Test Results: Test results from this visit will be discussed in further detail at your follow- up appointment, if applicable.
--- NOTE | 2020-01-23 15:36 | PCM.DCVAG ---
Discharge Diet: No Restrictions Discharge Activity: Return to Normal Activity, May Drive, May Shower, - - No tub baths for 2 weeks May resume sexual activity in: 2 weeks Call your doctor if your incision/area has: Foul Smelling Discharge Call your doctor if you observe: Fever of 101 or Higher, Shortness of breath, Chest pain Additional Instructions: If you experience any of the following, contact your healthcare provider. Bleeding that soaks a pad every hour for 2 hours Fever 100.4 or higher Unrelieved incision or abdominal pain Swelling, redness, discharge or bleeding from your incision or episiotomy site Your incision begins to separate Problems urinating (including inability to urinate or burning while urinating). Visual changes Severe headache Flu-like symptoms Pain or redness in one of both of your breasts Pain, warmth, tenderness or swelling in your legs, especially the calf area Frequent nausea and vomiting Symptoms of depression or anxiety If you experience any of the following, call 911 or go to the nearest Emergency Room. Chest pain Problems breathing Seizure activity Partial or complete paralysis of a body part, slurred speech, weakness or drooping of the face, or a sudden inability to walk or hold your balance Allergies/Adverse Reactions: Allergies No Known Allergies Allergy (Verified 01/19/20 11:13) Medications to take at Discharge Methadone HCl 5 mg PO BID 07/02/18 Amitriptyline HCl 25 mg PO QHS 02/20/19 Primary Care Physician: Aditya Garza MD [Primary Care Provider] - Test Results: Test results from this visit will be discussed in further detail at your follow-up appointment, if applicable.
== END 2020-01-23 17:15 | disposition home or self-care (01) | DRG 784 ==
LOC: WPOUT 11:12 → WP 11:12
PROVIDERS: Admitting Provider Student in an Organized Health Care Education/Training Program; PCP Family Medicine; Referring Provider Student in an Organized Health Care Education/Training Program; Visit Provider Student in an Organized Health Care Education/Training Program
DX: O65.5 Obstructed labor due to abnormality of maternal pelvic organs (principal); O99.324 Drug use complicating childbirth; O34.211 Maternal care for low transverse scar from previous cesarean delivery; F19.90 Other psychoactive substance use, unspecified, uncomplicated; Z30.2 Encounter for sterilization; Z3A.39 39 weeks gestation of pregnancy; Z37.0 Single live birth; Z87.891 Personal history of nicotine dependence; K66.0 Peritoneal adhesions (postprocedural) (postinfection)
CPT/HCPCS: 59025; 59050; 85025; 85027; 85461; 86850; 86900; 86901; 87426; 88302; 90384; 99218; J7120; A4216; G0378; J2405; J2790

== ENCOUNTER → 2024-10-17 | Outpatient (CLI) | payer BC, SELFPAY ==
--- NOTE | 2024-10-17 07:34 | EKG12_ITS ---
Test Reason : ASSISTED MED THERAP Blood Pressure : */* mmHG Vent. Rate : 52 BPM Atrial Rate : 52 BPM P-R Int : 130 ms QRS Dur : 86 ms QT Int : 434 ms P-R-T Axes : 41 75 52 degrees QTcB Int : 403 ms Sinus bradycardia with sinus arrhythmia Otherwise normal ECG When compared with ECG of 29-Oct-2019 11:01, Sinus rhythm has replaced Ectopic atrial rhythm QRS axis Shifted left Criteria for Lateral infarct are no longer Present Confirmed by BEE GOMEZ, ALISIA ([id number]), editor dictionary NATE VERA ([id number]) on 10/20/2024 8:55:27 AM Referred By: MARY GUPTA Confirmed By: ALISIA GAMBOA MD
== END | disposition home or self-care (01) ==
DX: Z79.891 Long term (current) use of opiate analgesic (principal)
CPT/HCPCS: 93005